=== PATIENT | male | born 1945 | race Caucasian/White ===

== ENCOUNTER → 2018-01-10 | Outpatient (CLI) | payer MEDICARE, BC ==
[~2018-01-10] MED LIST: DIATRIZOATE MEGL/DIATRIZOA SOD 30 ML BTL PO ONE; IOPAMIDOL 370 MG/ML 200 ML INFUS..BTL INJ ONE; SODIUM CHLORIDE 0.9% 50ML 50 ML ONE; Z.0.ATENOLOL100 MG; Z.0.FLOMAX0.4 MG
[2018-01-10 11:56] LABS: BLOOD UREA NITROGEN 15 mg/dL (7-26); BUN/CREATININE RATIO 14 (6-25); CREATININE, SERUM 1.08 mg/dL (0.72-1.25); EST GLOMERULAR FILTRATION RATE > 60 ML/MIN (60-)
--- NOTE | 2018-01-10 13:11 | Diagnostic Imaging Report ---
PROCEDURE: CT ABDOMEN AND PELVIS WITH CONTRAST TECHNIQUE: The abdomen and pelvis were scanned utilizing a multidetector helical scanner from the diaphragm to the lesser trochanter after the IV administration of 100 cc of Isovue 370 and the oral administration of dilute Gastrografin. Coronal and sagittal multiplanar reformations were obtained. COMPARISON: CT, CT ABDOMEN W/ \T\ W/O CON, 01/22/2007, 8:25. Patients [facility], CT, CT ABDOMEN/PELVIS WOW, 05/11/2014, 10:57. Patients [facility], CT, CT ABDOMEN/PELVIS W, 04/30/2014, 10:37. INDICATIONS: LOWER ABDOMEN PAIN FINDINGS: LOWER THORAX: Stable 0.6 cm nodule in the right lower lobe (series 2, image 16) since 2006. Lung bases are otherwise clear. HEPATOBILIARY: No focal hepatic lesions. Reflux of contrast into the IVC and hepatic veins. No biliary ductal dilatation. Gallbladder is unremarkable. SPLEEN: No splenomegaly. PANCREAS: No focal masses or ductal dilatation. ADRENALS: No adrenal nodules. KIDNEYS/URETERS: Stable 5 mm nonobstructing calculus in the inferior pole of the left kidney (series 2 image 43 and sagittal image 109). Stable punctate nonobstructing calculus in the interpolar left kidney (series 2, image 39). Stable 4 mm nonobstructing calculus in the superior pole of the left kidney (series 2, image 30). No right renal calculi. No ureteral calculi, hydronephrosis, or obstruction. Slight interval decrease in size of 7.3 x 7.0 x 7.8 cm fluid density lesion in the posterior interpolar left kidney, which contains linear wall calcifications (series 2, image 39), and previously measured 8.2 x 7.1 x 7.9 cm, when measured along the same axes. Interval increase in size of 4.7 x 4.6 x 3.9 cm lobulated, simple cyst in the anterior superior left kidney (series 2, image 30), which previously measured 2.4 x 3.1 x 2.6 cm. No solid enhancing masses. PELVIC ORGANS/BLADDER: Bladder is unremarkable. Enlarged prostate. Seminal vesicles are unremarkable. PERITONEUM / RETROPERITONEUM: No free air or fluid. LYMPH NODES: No lymphadenopathy. VESSELS: Celiac trunk, superior and inferior mesenteric, and bilateral renal arteries are patent. Bilateral accessory renal arteries are again noted. Portal, superior mesenteric, and splenic veins are patent. Atherosclerotic calcification of the distal abdominal aorta. GI TRACT: No bowel dilation or evidence of obstruction. No pericolonic inflammatory changes. Mild descending and sigmoid colon diverticulosis, without diverticulitis. Appendix is unremarkable. Stomach is unremarkable. BONES AND SOFT TISSUES: No aggressive lytic lesions. Degenerative joint disease in the form of facet hypertrophy at L5-S1. The soft tissues are grossly unremarkable. IMPRESSION: 1. No acute abdominopelvic abnormalities. Specifically, no acute findings to explain the patient's pain. No bowel dilation or evidence of obstruction. 2. Stable left nonobstructing renal calculi. No ureteral calculi, hydronephrosis, or obstruction. 3. Interval increase in size of 4.7 cm simple cyst (Bosniak 1) in the anterior superior left kidney. Interval decrease in size of 7.8 cm Bosniak 2 cyst in the interpolar left kidney. 4. Reflux of contrast into the IVC and hepatic veins may reflect right ventricular dysfunction. Lai Brody M.D. Dictated by: Lai Brody M.D. on 01/10/2018 at 13:12 Electronically approved by: Lai Brody M.D. on 01/10/2018 at 13:12
== END ==
LOC: CT 10:38
PROVIDERS: ATTEND Internal Medicine
DX: R10.84 Generalized abdominal pain (principal); A09 Infectious gastroenteritis and colitis, unspecified
CPT/HCPCS: 36415; 74177; 82565; 84520; Q9967

== ENCOUNTER → 2018-10-01 | Outpatient (CLI) | payer MEDICARE, BC ==
[~2018-10-01] MED LIST changes: -DIATRIZOATE MEGL/DIATRIZOA SOD 30 ML BTL PO ONE; -IOPAMIDOL 370 MG/ML 200 ML INFUS..BTL INJ ONE; -SODIUM CHLORIDE 0.9% 50ML 50 ML ONE
--- NOTE | 2018-10-01 20:52 | Diagnostic Imaging Report ---
EXAM: Complete Abdominal Ultrasound INDICATION: ^ABN WT LOSS/FAM HX MALIG NEOP DIGESTIVE ORGANS COMPARISON: None. TECHNIQUE: Transverse and longitudinal images of the upper abdomen were obtained. FINDINGS: Liver: Size: 16.0 cm in the right midclavicular line, normal Appearance: Normal echogenicity, smooth contour Mass: No focal masses Spleen: Size: 12.3 cm in length, normal Echogenicity: Normal Mass: No focal masses Gallbladder: Stones/Sludge: None Wall: 0.2 cm Appearance: No pericholecystic fluid or hydrops. Sonographic Calle's Sign: Negative Bile Ducts: Intrahepatic Ducts: No dilatation Extrahepatic Ducts: Common bile duct measures 0.4 cm, no dilatation Pancreas: Visualized portions of the pancreatic head, neck and proximal body are normal. Right Kidney: Size: 11.4 x 4.7 x 6.0 cm Echogenicity: Normal Parenchymal thickness: Normal Collecting System: No hydronephrosis Stone: None Cyst/Mass: None Left Kidney: Size: 13.0 x 5.2 x 5.9 cm Echogenicity: Normal Parenchymal thickness: Normal Collecting System: No hydronephrosis Stone: None Cyst/Mass: * 5.4 x 4.2 x 5.0 cm simple anechoic cyst in the medial superior pole. * 7.5 x 7.3 x 6.5 cm simple anechoic cyst in the lateral interpolar region. Vessels: Aorta: Visualized portions are normal Inferior Vena Cava: Visualized portions are normal Main Portal Vein: 0.8 cm, normal size with hepatopetal flow. Free Fluid: No ascites or pleural effusion IMPRESSION: 1. 2 large benign left renal cysts. 2. Otherwise unremarkable abdominal ultrasound. Signed by: Dr. Israel Flannery M.D. on 10/01/2018 8:49 PM
--- NOTE | 2018-10-01 21:00 | Diagnostic Imaging Report ---
EXAM: Transabdominal Pelvic Ultrasound INDICATION: ABN WT LOSS/FAM HX MALIG NEOP DIGESTIVE ORGANS. Left groin pain. COMPARISON: None TECHNIQUE: Grayscale transverse and sagittal transabdominal images were obtained of the pelvis. CLINICAL HISTORY: None FINDINGS: 1.8 x 0.8 x 1.4 cm benign appearing lymph node with a large fatty hilum in the left groin. IMPRESSION: 1.8 cm benign lymph node in the left groin. Signed by: Dr. Israel Flannery M.D. on 10/01/2018 8:56 PM
== END ==
LOC: US 13:44
PROVIDERS: ATTEND Nurse Practitioner Acute Care
DX: R10.30 Lower abdominal pain, unspecified (principal); N50.819 Testicular pain, unspecified; R97.20 Elevated prostate specific antigen [PSA]; R63.4 Abnormal weight loss; Z79.01 Long term (current) use of anticoagulants; Z80.0 Family history of malignant neoplasm of digestive organs
CPT/HCPCS: 76700; 76856

== ENCOUNTER → 2018-11-25 | Outpatient (CLI) | payer MEDICARE, BC ==
--- NOTE | 2018-11-25 15:41 | Diagnostic Imaging Report ---
Exam: Left Knee Series- 3 views. History: Leg pain. Comparison: None. Findings: There are moderate to severe degenerative changes in the medial compartment with joint space narrowing, subchondral sclerosis and bony osteophyte formation. There are moderate degenerative changes in the lateral and patellofemoral compartments. There is quadriceps enthesopathy. No evidence of acute fracture, malalignment, or joint effusion. Impression: No acute osseous abnormality. 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 Signed by: Dr. Nancy Jhaveri MD on 11/25/2018 3:37 PM
== END ==
LOC: DX 12:15
PROVIDERS: ATTEND Internal Medicine
DX: M79.604 Pain in right leg (principal); M17.11 Unilateral primary osteoarthritis, right knee; R22.43 Localized swelling, mass and lump, lower limb, bilateral
CPT/HCPCS: 93925; 93970

== ENCOUNTER 2018-12-25 11:28 | Inpatient (IN) | payer MEDICARE, BC ==
[~2018-12-25] VITALS: Ht 180.3 cm; Wt 101.9 kg
--- OUTSIDE RECORDS SUMMARY | 2018-12-25 11:31 | XMS REPORT ---
Author Author [facility] Address Unknown Phone Unavailable Care Team Providers Care Corporate Development Officer Name Role Phone PACO MACHADO Unavailable Unavailable HAMPEL, CHAY Unavailable Unavailable KARAMIMOGHASAM, MAASOUMAH Unavailable Unavailable Problems This patient has no known problems. Allergies, Adverse Reactions, Alerts This patient has no known allergies or adverse reactions. Medications This patient has no known medications. Results Test Description Test Time Test Comments Text Results Atomic Results Result Comments KNEE LEFT THREE VIEWS 2018-11-25 15:34:00 [place] [address] Patient Name: KELLY PLASENCIA MR #: [id number] : 1945 Age/Sex: 73/M Req #: [id number] Adm Physician: Ordered by: PACO MACHADO MD Report #: [id number] Location: [facility] Room/Bed: Procedure: [id number] DX/KNEE LEFT THREE VIEWS Exam Date: 11/25/18 Exam Time: 1512 REPORT STATUS: Signed Exam: Left Knee Series- 3 views. History: Leg tali n. Comparison: None. Findings: There are moderate to severe degenerative changes in the medial compartment with joint space narrowing, subchondral sclerosis and bony osteophyte formation. There are moderate degenerative changes in the lateral and patellofemoral compartments. There is quadriceps enthesopathy. No evidence of acute fracture, malalignment, or joint effusion. Impression: No acute osseous abnormality. 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 Signed by: Dr. Sarina Fletcher MD on 11/25/2018 3:37 PM Dictated By: SARINA FLETCHER MD 36 Transcribed By: ABBY on 11/25/181536 COPY TO: PACO MACHADO MD CT ABDOMEN/PELVIS WOW 2018-10-17 14:55:00 [place] [address] Patient Name: KELLY PLASENCIA MR #: [id number] : 1945 Age/Sex: 73/M Req #: [id number] Adm Physician: Ordered by: CHAY DUMONT MD Report #: [id number] Location: CT Room/Bed: Procedure: [id number] CT/CT ABDOMEN/PELVIS WOW Exam Date: 10/17/18 Exam Time: 1356 REPORT STATUS: Signed ADDENDUM #1 ADDENDUM: Dose modulation, iterative reconstruction, and/or weight based adjustment of the mA/kV was utilized to reduce the radiation dose to as low as reasonably achievable. Signed by: Dr. Sarina Fletcher MD on 11/04/2018 3:40 PM ORIGINAL REPORT EXAM: CT Abdomen with and without contrast INDICATION: Renal cyst. COMPARISON: CT abdomen pelvis with contrast 01/10/2018, CT abdomen/pelvis with contrast 04/30/2014. TECHNIQUE: Abdomen was scanned utilizing a multidetector helical scanner from the lung base to the iliac crest before and after administration of IV contrast. Coronal and sagittal reformations were obtained. Routine protocol was performed. Scan was performed with renal mass protocol with noncontrast, arterial phase, and delayed images. IV CONTRAST: 100 cc of Isovue 370 ORAL CONTRAST: Water RADIATION DOSE: Total DLP: 2352 mGy*cm COMPLICATIONS: None FINDINGS: LINES and TUBES: None. LOWER THORAX: Unchanged 6 mm right basilar lung nodule compared to CT on 04/30/2014, consistent with benign etiology. HEPATOBILIARY: No focal hepatic lesions. No biliary ductal dilation. The gallbladder is unremarkable. SPLEEN: No splenomegaly. PANCREAS: No focal masses or ductal dilatation. ADRENALS: No adrenal nodules KIDNEYS/URETERS: There is a simple left upper pole lobulated cyst, measuring up to 5 cm, unchanged from CT on 01/10/2018. A minimally complex cyst with peripheral linear calcifications in the left posterior interpolar kidney, measures up to 6.7 x 6.6 cm (oblique TV x AP), unchanged by my measurement from CT on 01/10/2018, and decreased in size from CT on 04/30/2014. No evidence of solid enhancing component or solid mass. Stable 5 mm nonobstructing stone in the left inferior pole kidney. Stable punctate left interpolar stone. Stable 4 mm stone in the superior pole of left kidney. GI TRACT: No abnormal distention, wall thic kening, or evidence of bowel obstruction. LYMPH NODES: No lymphadenopathy. VESSELS: Scattered atherosclerotic changes of the abdominal aorta and branch vessels. There is reflux of contrast into the IVC, suggestive of right heart dysfunction. PERITONEUM / RETROPERITONEUM: No free air or fluid. BONES/SOFT TISSUES: No acute bony findings or evidence of suspicious lytic or blastic lesions. IMPRESSION: Unchanged appearance of minimally complex left mid pole renal cyst compared to CT on 01/10/2018 and slightly decreased in size from CT on 04/30/2014. No evidence of solid enhancing component. Additional simple left upper pole renal cyst. Nonobstructing left-sided renal stones measuring up to 5 mm. Signed by: Dr. Sarina Fletcher MD on 10/17/2018 3:12 PM Dictated By: SARINA FLETCHER MD 1546 Transcribed By: ABBY on 10/17/18 1512 COPY TO: CHAY DUMONT MD US PELVIS COMPLETE NON OB 2018-10-01 20:49:00 [place] [address] Patient Name: KELLY PLASENCIA MR #: [id number] : 1945 Age/Sex: 73/M Req #: [id number] Adm Physician: Ordered by: JAY BRUNSON CANCELING AND CUTTING CONTROL CLERK Report #: [id number] Location: US Room/Bed: Procedure: [id number] US/US PELVIS COMPLETE NON OB Exam Date: 10/01/18 Exam Time: 1426 REPORT STATUS: Signed EXAM: Transabdominal Pelvic Ultrasound INDICATION: ABN WT LOSS/FAM HX MALIG NEOP DIGESTIVE ORGANS. Left groin pain. COMPARISON: None TECHNIQUE: Grayscale transverse and sagittal transabdominal images were obtained of the pelvis. CLINICAL HISTORY: None FINDINGS: 1.8 x 0.8 x 1.4 cm benign appearing lymph node with a large fatty hilum in the left groin. IMPRESSION: 1.8 cm benign lymph node in the left groin. Signed by: Dr. Lilia Sena M.D. on 10/01/2018 8:56 PM Dictated By: LILIA SENA MD 55 Transcribed By: ABBY on 10/01/182055 COPY TO: JAY BRUNSON CANCELING AND CUTTING CONTROL CLERK US ABDOMEN COMPLETE 2018-10-01 20:46:00 [place] [address] Patient Name: KELLY PLASENCIA MR #: [id number] : 1945 Age/Sex: 73/M Req #: [id number] Adm Physician: Ordered by: JAY BRUNSON NP Report #: [id number] Location: Room/Bed: Procedure: [id number] US/US ABDOMEN COMPLETE Exam Date: 10/01/18 Exam Time: 1415 REPORT STATUS: Signed EXAM: Complete Abdominal Ultrasound INDICATION: ABN WT LOSS/FAM HX MALIG NEOP DIGESTIVE ORGANS COMPARISON: None. TECHNIQUE: Transverse and longitudinal images of the upper abdomen were obtained. FINDINGS: Liver: Size: 16.0 cm in the right midclavicular line, normal Appearance: Normal echogenicity, smooth contour Mass: No focal masses Spleen: Size: 12.3 cm in length, normal Echogenicity: Normal Mass: No focal masses Gallbladder: Stones/Sludge: None Wall: 0.2 cm Appearance: No pericholecystic fluid or hydrops. Sonographic Calle's Sign: Negative Bile Ducts: Intrahepatic Ducts: No dilatation Extrahepatic Ducts: Common bile duct measures 0.4 cm, no dilatation Pancreas: Visualized portions of the pancreatic head, neck and proximal body are normal. Right Kidney: Size: 11.4 x 4.7 x 6.0 cm Echogenicity: Normal Parenchymal thickness: Normal Collecting System: No hydronephrosis Stone: None Cyst/Mass: None Left Kidney: Size: 13.0 x 5.2 x 5.9 cm Echogenicity: Normal Parenchymal thickness: Normal Collecting System: No hydronephrosis Stone: None Cyst/Mass: * 5.4 x 4.2 x 5.0 cm simple anechoic cyst in the medial superior pole. * 7.5 x 7.3 x 6.5 cm simple anechoic cyst in the lateral interpolar region. Vessels: Aorta: Visualized portions are normal Inferior Vena Cava: Visualized portions are normal Main Portal Vein: 0.8 cm, normal size with hepatopetal flow. Free Fluid: No ascites or pleural effusion IMPRESSION: 1. 2 large benign left renal cysts. 2. Otherwise unremarkable abdominal ultrasound. Signed by: Dr. Lilia Sena M.D. on 10/01/2018 8:49 PM Dictated By: LILIA SENA MD 48 Transcribed By: ABBY on 10/01/182048 COPY TO: JAY BRUNSON NP CT ABDOMEN/PELVIS W [place] [address] Patient Name: KELLY PLASENCIA MR #: [id number] : 1945 Age/Sex: 72/M Req #: [id number] Adm Physician: Ordered by: PACO MACHADO MD Report #: [id number] Location: CT Room/Bed: Procedure: [id number] CT/CT ABDOMEN/PELVIS W Exam Date: 01/10/18 Exam Time: 1200 REPORT STATUS: Signed PROCEDURE: CT ABDOMEN AND PELVIS WITH CONTRAST TECHNIQUE: The abdomen and pelvis were scanned utilizing a multidetector helical scanner from the diaphragm to the lesser trochanter after the IV administration of 100 cc of Isovue 370 and the oral administration of dilute Gastrografin. Coronal and sagittal multiplanar reformations were obtained. COMPARISON: CT, CT ABDOMEN W/ T W/O CON, 01/22/2007, 8:25. [facility], CT, CT ABDOMEN/PELVIS WOW, 05/11/2014, 10:57. [facility], CT, CT ABDOMEN/PELVIS W, 04/30/2014, 10:37. INDICATIONS: LOWER ABDOMEN PAIN FINDINGS: LOWER THORAX: Stable 0.6 cm nodule in the right lower lobe (series 2, image 16) since 2006. Lung bases are otherwise clear. HEPATOBILIARY: No focal hepatic lesions. Reflux of contrast into the IVC and hepatic veins. No biliary ductal dilatation. Gallbladder is unremarkable. SPLEEN: No splenomegaly. PANCREAS: No focal masses or ductal dilatation. ADRENALS: No adrenal nodules. KIDNEYS/URETERS: Stable 5 mm nonobstructing calculus in the inferior pole of the left kidney (series 2 image 43 and sagittal image 109). Stable punctate nonobstructing calculus in the interpolar left kidney (series 2, image 39). Stable 4 mm nonobstructing calculus in the superior pole of the left kidney (series 2, image 30). No right renal calculi. No ureteral calculi, hydronephrosis, or obstruction. Slight interval decrease in size of 7.3 x 7.0 x 7.8 cm fluid density lesion in the posterior interpolar left kidney, which contains linear wall calcifications (series 2, image 39), and previously measured 8.2 x 7.1 x 7.9 cm, when measured along the same axes. Interval increase in size of 4.7 x 4.6 x 3.9 cm lobulated, simple cyst in the anterior superior left kidney (series 2, image 30), which previously measured 2.4 x 3.1 x 2.6 cm. No solid enhancing masses. PELVIC ORGANS/BLADDER: Bladder is unremarkable. Enlarged prostate. Seminal vesicles are unremarkable. PERITONEUM / RETROPERITONEUM: No free air or fluid. LYMPH NODES: No lymphadenopathy. VESSELS: Celiac trunk, superior and inferior mesenteric, and bilateral renal arteries are patent. Bilateral accessory renal arteries are again noted. Portal, superior mesenteric, and splenic veins are patent. Atherosclerotic calcification of the distal abdominal aorta. GI TRACT: No bowel dilation or evidence of obstruction. No pericolonic inflammatory changes. Mild descending and sigmoid colon diverticulosis, without diverticulitis. Appendix is unremarkable. Stomach is unremarkable. BONES AND SOFT TISSUES: No aggressive lytic lesions. Degenerative joint disease in the form of facet hypertrophy at L5-S1. The soft tissues are grossly unremarkable. IMPRESSION: 1. No acute abdominopelvic abnormalities. Specifically, no acute findings to explain the patient's pain. No bowel dilation or evidence of obstruction. 2. Stable left nonobstructing renal calculi. No ureteral calculi, hydronephrosis, or obstruction. 3. Interval increase in size of 4.7 cm simple cyst (Bosniak 1) in the anterior superior left kidney. Interval decrease in size of 7.8 cm B osniak 2 cyst in the interpolar left kidney. 4. Reflux of contrast into the IVC and hepatic veins may reflect right ventricular dysfunction. Wicho Brody M.D. Dictated by: Wicho Brody M.D. on 01/10/2018 at 13:12 Electronically approved by: Wicho Brody M.D. on 01/10/2018 at 13:12 Dictated By: WICHO BRODY MD 1312 Transcribed By: ANA on 01/10/18 1312 COPY TO: PACO MACHADO MD
[2018-12-25] MEDS ORDERED: SODIUM CHLORIDE 0.9% 500ML 500 ML ONE (11:43)
[2018-12-25] MEDS ORDERED: DILTIAZEM HCL VIAL 5 ML ONE (11:43)
--- NOTE | 2018-12-25 11:43 | NUR ---
CARDIZEM BOLUS 10MG IV GIVEN PER DR CONTRERAS VERBAL ORDER.
[2018-12-25] MEDS ORDERED: DILTIAZEM HCL 5 MG/ML 5 ML VIAL IV STA (11:45)
[2018-12-25] MEDS ORDERED: SODIUM CHLORIDE 0.9% 500ML 500 ML IV ONE (11:45)
[2018-12-25] MEDS ORDERED: FUROSEMIDE INJ 10 MG/ML 4 ML VIAL IV ONE (12:00)
[2018-12-25] MEDS ORDERED: LISINOPRIL10 MG PO (12:03)
[2018-12-25 12:55] LABS: BASOPHILS % 0.3 % (0.0-1.0); EOSINOPHILS % 0.4 % (0.0-6.0); HEMATOCRIT 47.3 % (38.2-49.6); HEMOGLOBIN 14.9 g/dL (14.0-18.0); LYMPHOCYTES # (AUTO) 1.4 (1.0-3.2); LYMPHOCYTES % 14.2 % (18.0-39.1); MEAN CORPUSCULAR HEMOGLOBIN 29.3 pg (28-32); MEAN CORPUSCULAR HGB CONC 31.5 g/dL (31-35); MEAN CORPUSCULAR VOLUME 93.1 fL (81-99); MONOCYTES # (AUTO) 0.7 (0.2-0.8); MONOCYTES % 7.3 % (4.4-11.3); NEUTROPHILS # (AUTO) 7.7 (2.1-6.9); NEUTROPHILS % 77.2 % (38.7-80.0); PLATELET COUNT 287 x10e3/uL (140-360); RED BLOOD COUNT 5.08 x10e6/uL (4.3-5.7); RED CELL DISTRIBUTION WIDTH 13.6 % (11.7-14.4)
--- NOTE | 2018-12-25 13:00 | NUR ---
INSERTED CAREY CATHETHER PER MD ORDERS FOR URINARY RETENTION PT WHEN URINE STARTED TO COME OUT IT WAS BLOODY AND CLEAR AND PT C/O PAIN NURSE STOPPED INSERTION AND WITHDREW CATHETER AND ON THE TIP OF THE CATHETER WAS BLOOD CLOTS; BLOOD CLOT SHOWN TO MD WHO CALLED DR DUMONT FOR INSTRUCTIONS; PER DR CONTRERAS PER DR Shalonda DUMONT GIVE PT SOME TIME RE-INSERT CAREY AND MANUALLY FLUSH; CAREY INSERTION RE-ATTEMPTED APPROX 1400 WITH ASSISTANCE FROM TEODORO JEFFREY CAREY INSERTED AND CLEAR BLOOD CAME OUT PT DID NOT C/O PAIN PT MANUALLY FLUSHED WITH APPROX 420 CC NS WITH APPROX 600 CC URINE/NS COMING BACK OUT; CAREY REMAINS IN PLACE AND PT DENIES ANY DISCOMFORT WITH CAREY AT THIS TIME APPROX 300 CC BLOODY URINE NOTED IN CAREY BAG
[2018-12-25 13:13] LABS: INR 2.76; PROTHROMBIN TIME 29.9 seconds (11.9-14.5)
[2018-12-25 13:14] LABS: PARTIAL THROMBOPLASTIN TIME 38.1 seconds (23.8-35.5)
[2018-12-25 13:18] LABS: ALBUMIN 3.1 g/dL (3.5-5.0); ALBUMIN/GLOBULIN RATIO 0.9 (0.8-2.0); ANION GAP 14.4 mmol/L (8-16); CALCIUM 9.1 mg/dL (8.4-10.2); CREATININE, SERUM 1.55 mg/dL (0.72-1.25); MAGNESIUM 1.9 MG/DL (1.3-2.1); POTASSIUM 4.4 mmol/L (3.5-5.1)
--- NOTE | 2018-12-25 13:31 | Diagnostic Imaging Report ---
EXAM: CHEST SINGLE (PORTABLE) DATE: 12/25/2018 11:46 AM INDICATION: Shortness of breath COMPARISON: None FINDINGS: Lines and tubes: None Heart size normal. No focal pulmonary opacity, pleural effusion or pneumothorax. Upper abdomen unremarkable. No acute bony abnormality. Healed left rib fractures are noted. IMPRESSION: No evidence for acute disease. Signed by: Dr. Evan Fernandez M.D. on 12/25/2018 1:28 PM
[2018-12-25 13:41] LABS: THYROID STIMULATING HORMONE 1.815 uIU/mL (0.350-4.940)
[2018-12-25] MEDS ORDERED: ONDANSETRON HCL INJ 2MG/ML 2ML 2 MG/ML VIAL IV PRN (13:45)
--- NOTE | 2018-12-25 16:00 | NUR ---
DR Rashid RUANO IN ROOM WITH PT
[2018-12-25] MEDS ORDERED: AMIODARONE HCL 900 MG in DEXTROSE 5% 500ML 500 ML IV SCH (16:15)
[2018-12-25] MEDS ORDERED: AMIODARONE HCL 150 MG/100 ML BAG IV ONE (16:15)
[2018-12-25] MEDS ORDERED: AMIODARONE HCL 900 MG in DEXTROSE 5 % 500ML BOTTLE 500 ML IV SCH ×2 (16:30→16:45)
[2018-12-25] MEDS ORDERED: AMIODARONE HCL 150 MG in DEXTROSE 5% 100ML 100 ML IV ONE (16:30)
[2018-12-25] MEDS ORDERED: WARFARIN SOD 5 MG TAB PO SCH (17:00)
--- NOTE | 2018-12-25 18:42 | Consultation ---
DATE OF CONSULTATION: Cardiology Consultation CONSULTING PHYSICIAN: Cal Gauthier M.D., Interventional Cardiology. REASON FOR CONSULTATION: Atrial fibrillation. HISTORY OF PRESENT ILLNESS: Mr. Yoon is a pleasant 73-year-old man with history of morbid obesity, lymphedema, history of right lower extremity DVT for which he has been on chronic vitamin K anticoagulant with therapeutic INR on admission of 2.76, history of hypertension and BPH who presents to [facility] via the Emergency Department with complaints of palpitations and lightheadedness. He underwent an EEG done at his primary doctor's office, which was significant for atrial fibrillation reportedly, the patient was transferred to the ER for further care. Initially, he was provided with diltiazem IV followed by a drip. His rate has remained in the 120s to 140s, AFib on telemetry. He denies any chest discomfort. He feels somewhat better upon arrival. He also received furosemide 60 mg IV x1. He does not recall any prior history of arrhythmias. He does not recall any prior cardiac histories otherwise. Other significant findings included an elevated BNP of 510, a magnesium of 1.9, and a creatinine of 1.55. His EKG shows atrial fibrillation with rapid ventricular response. REVIEW OF SYSTEMS: 12-system review is negative except for as noted above. PAST MEDICAL HISTORY: Significant for lymphedema, morbid obesity, right lower extremity DVT and hypertension. HOME MEDICATIONS: Include atenolol 100 mg daily, lisinopril 10 mg daily, and Flomax 0.4 mg daily. He also reports being on warfarin, however, he does not recall his current dose. He does not recall other medications. ALLERGIES: PLEASE SEE EMR. SOCIAL HISTORY: Occasional alcohol use. Denies any recent smoking or drugs. FAMILY HISTORY: Significant for hypertension. PHYSICAL EXAMINATION: VITAL SIGNS: Temperature 97.6, heart rate 132, respiratory rate 18, blood pressure 120/98, and O2 saturation 100%. GENERAL: No acute distress. Alert. NECK: With JVD to lower 3rd. CHEST: Clear to auscultation. CARDIOVASCULAR: Irregularly irregular rate and rhythm. Normal S1 and S2. No S3 or S4. No murmurs or rubs. ABDOMEN: Soft and nontender. EXTREMITIES: With 3+ edema including toes with pitting edema and some bullous skin changes to the distal lower extremities. STUDIES REVIEWED: BNP 510, magnesium 1.9. TSH 1.81, sodium 139, potassium 4.4, chloride 106, bicarbonate 23, BUN 28, creatinine 1.55, glucose 116. White blood cells 10, hemoglobin 14.9, platelets 287. PT 29.9, PTT 38.1, INR 2.76, total protein 6.4, albumin 3.1, AST 29, ALT 48, alkaline phosphatase 96. ASSESSMENT: 1. Atrial fibrillation with rapid ventricular response, new diagnosis. 2. History of right lower extremity deep venous thrombosis. 3. Hypertension. 4. Morbid obesity. 5. Lower extremity lymphedema, bilateral. 6. Acute heart failure, unspecified. RECOMMENDATIONS: 1. Initiate beta-jenna given his creatinine of 1.5, possibly acute. We will stop atenolol home dose and initiate metoprolol instead for now. 2. Continue anticoagulation with warfarin for now, Continue at 5 mg daily and check daily INRs. Once home dose confirmed, we will adjust accordingly. 3. Obtain echocardiogram. 4. Agree with diuretics. 5. Keep on telemetry. 6. As outpatient, would benefit from further workup of his lower extremity edema and possibly compression pump therapy. 7. Thank you for the opportunity to participate in the care of Dr. Yoon. Please feel free to call with any questions. We will follow closely. MD ALBERT Christianson/WALKERL /[phone]
[2018-12-25 20:30] VITALS: BP 126/100
--- NOTE | 2018-12-25 20:30 | NUR ---
Received patient as an admission from ER, Afib, on Amio drip, on oxygen at 3l/min. Saturating well. shortness of breath on exertion
[2018-12-25 21:00] VITALS: BP 126/100
[2018-12-25] MEDS: METOPROLOL SUCCINATE 50 MG TAB XL PO SCH (21:47)
[2018-12-25 22:21] VITALS: BP 126/100
[2018-12-26] VITALS (8 sets, daily range): BP systolic 105–134; BP diastolic 76–107
[2018-12-26 05:07] LABS: BASOPHILS % 0.2 % (0.0-1.0); EOSINOPHILS # (AUTO) 0.1 (0.0-0.4); EOSINOPHILS % 0.8 % (0.0-6.0); HEMATOCRIT 44.4 % (38.2-49.6); HEMOGLOBIN 14.1 g/dL (14.0-18.0); LYMPHOCYTES # (AUTO) 1.2 (1.0-3.2); LYMPHOCYTES % 14.2 % (18.0-39.1); MEAN CORPUSCULAR HEMOGLOBIN 29.4 pg (28-32); MEAN CORPUSCULAR HGB CONC 31.8 g/dL (31-35); MEAN CORPUSCULAR VOLUME 92.7 fL (81-99); MONOCYTES # (AUTO) 0.7 (0.2-0.8); MONOCYTES % 8.2 % (4.4-11.3); NEUTROPHILS # (AUTO) 6.3 (2.1-6.9); PLATELET COUNT 210 x10e3/uL (140-360); RED BLOOD COUNT 4.79 x10e6/uL (4.3-5.7); RED CELL DISTRIBUTION WIDTH 13.5 % (11.7-14.4)
[2018-12-26] MEDS ORDERED: FUROSEMIDE INJ 10 MG/ML 4 ML VIAL IV ONE (05:15)
[2018-12-26] MEDS ORDERED: TRAZODONE HCL 50 MG TAB PO PRN (05:15)
[2018-12-26 05:18] LABS: INR 3.06; PROTHROMBIN TIME 32.4 seconds (11.9-14.5)
--- NOTE | 2018-12-26 05:22 | NUR ---
During AM bath patient noted to have red rash over upper torso, Dr. Ricardo notified and assessed patient. New orders received
[2018-12-26 05:30] LABS: CALCIUM 8.9 mg/dL (8.4-10.2); CHOL/HDL RATIO 3.4 (3.9-4.7); CREATININE, SERUM 1.31 mg/dL (0.72-1.25); MAGNESIUM 1.9 MG/DL (1.3-2.1)
[2018-12-26] MEDS: DIPHENHYDRAMINE HCL 25 MG CAP PO PRN ×3 (06:00→22:16)
--- NOTE | 2018-12-26 07:09 | NUR ---
handed over stable
--- NOTE | 2018-12-26 07:21 | NUR ---
pt resting in bed, no c/o pain or s/s distress. vs stable. on amio drip. able to make needs known. will continue to monitor.
[2018-12-26] MEDS: LISINOPRIL 10 MG TAB PO SCH (09:55)
[2018-12-26] MEDS: METOPROLOL SUCCINATE 50 MG TAB XL PO SCH ×2 (09:55→20:42)
[2018-12-26] MEDS: TAMSULOSIN HCL 0.4 MG CAP PO SCH (09:55)
--- NOTE | 2018-12-26 09:57 | Diagnostic Imaging Report ---
EXAMINATION: CHEST SINGLE (PORTABLE) INDICATION: SOB. COMPARISON: Chest radiograph 12/25/2018. FINDINGS: TUBES and LINES: None. LUNGS: Interval development of mild patchy bibasilar opacities. No evidence of pulmonary edema. PLEURA: No pleural effusion or pneumothorax. HEART AND MEDIASTINUM: The cardiomediastinal silhouette is unremarkable. BONES AND SOFT TISSUES: No acute osseous abnormality. Healed left upper rib fractures. UPPER ABDOMEN: No free air under the diaphragm. IMPRESSION: Interval development of mild patchy bibasilar opacities, which may reflect atelectasis or early pneumonia in the appropriate clinical setting. Signed by: Dr. Nancy Jhaveri MD on 12/26/2018 9:53 AM
--- NOTE | 2018-12-26 13:42 | NUR ---
attempting to wean pt off o2. sats 89-98% while resting in bed, amb to bathroom and desat below 86%. updated CSM
--- NOTE | 2018-12-26 14:02 | Progress Note ---
DATE: 12/26/2018 Cardiology Progress Note SUBJECTIVE: Omar has improvement in his symptoms. He feels somewhat less fatigued, however, not back to baseline. He continues to be in atrial fibrillation with episodes of rapid ventricular response in spite of uptitration of beta-jenna and amiodarone IV drip. We discussed his echo results, which are significant for impaired LV systolic function with LVEF of 25% to 30%. OBJECTIVE: VITAL SIGNS: Temperature 97.7, heart rate 115, blood pressure 107/84, respiratory rate 18, O2 saturation 100%, BMI 37.6. GENERAL: In no acute distress, alert. NECK: No JVD. CHEST: Clear to auscultation. CARDIOVASCULAR: Irregularly irregular rate and rhythm. Normal S1 and S2. ABDOMEN: Soft. EXTREMITIES: With 2+ edema. CARDIOVASCULAR MEDICATIONS: Reviewed: 1. Lisinopril 10 mg daily. 2. Metoprolol succinate 50 mg every 12 hours. 3. Amiodarone IV drip. 4. Warfarin will be placed on hold. INR today is 3.06. LABORATORY DATA: Sodium 139, potassium 4, chloride 106, bicarbonate 26, BUN 27, creatinine 1.3, glucose 98. White blood cells 8.3, hemoglobin 14.1, platelets 210. PT 32.4, PTT 38.1. AST 29, ALT 48, alkaline phosphatase 96, total bilirubin 0.9. ASSESSMENT: 1. Atrial fibrillation with rapid ventricular response. 2. Acute severe systolic heart failure, new diagnosis. 3. Hypertension. 4. Morbid obesity. 5. Lymphedema. 6. History of right lower extremity deep vein thrombosis. RECOMMENDATIONS: 1. Hold warfarin. 2. Discussed coronary invasive evaluation for new diagnosis of acute heart failure and angina. 3. Continue amiodarone drip until completion, then transition to p.o. amiodarone and continue beta-jenna dose. If continues to have issues with rapid ventricular response throughout the weekend, can consider DC cardioversion. I thank Dr. Ricardo for the opportunity to participate in the care of Mr. Yoon. Please free to call with any questions. Cal Gauthier MD AFV/MODL /[id number]
[2018-12-26] MEDS ORDERED: AMIODARONE HCL 900 MG in DEXTROSE 5 % 500ML BOTTLE 500 ML IV SCH (16:45)
[2018-12-26] MEDS: METHYLPREDNISOLONE SOD SUCC 125 MG/2ML VIAL IV SCH (17:00)
--- NOTE | 2018-12-26 17:11 | NUR ---
WOUND CARE NURSE CONSULTATOIN. Addendum: 12/26/18 at 1720 by Bisi Bush RN Amended: Links added.
--- NOTE | 2018-12-26 17:12 | NUR ---
WOUND CARE NURSE INITIAL CONSULTATION. 73 YEAR OLD MALE ADMITTED TO [facility] WITH DX OF ATRIAL FIBRILLATION WITH RVR, AND EDEMA. HX OF MORBID OBESITY, LYMPHEDEMA, RIGHT LOWER EXTREMITY DVT, CURRENTLY ON CHRONIC VITAMIN K ANTICOAGULANT, HTN, BPH AND CHF. HEAD TO TOE SKIN ASSESSMENT PERFORMED TODAY. PT PRESENTS WITH YEAST TO ABDOMINAL FOLDS AND 4+ EDEMA TO BILATERAL LOWER EXTREMITIES. NO OPEN AREAS NOTED AT THIS TIME. NO S/S OF INFECTION NOTED AT THIS TIME. LABS: WBC:8.31 ALB:3.1 HGBA1C: 5.5 GLUCOSE: 95 RECOMMENDATIONS: NURSING TO MONITOR EDEMA DAILY. PROVIDE PT WITH BILATERAL HEEL PROTECTORS AND PILLOW SUSPENSION WHILE IN BED. ENCOURAGE PT TO TURN EVERY 2 HOURS AND PRN. WASH ABDOMINAL FOLDS WITH SOAP AND WATER, PAT DY AND APPLY NYSTATIN POWDER BID. THANKS FOR THIS CONSULTATION. Addendum: 12/26/18 at 1720 by Bisi Bush RN Amended: Links added.
[2018-12-26] MEDS: FUROSEMIDE INJ 10 MG/ML 4 ML VIAL IV SCH (18:13)
--- NOTE | 2018-12-26 20:10 | NUR ---
Patient's HR 130's-150's, afib. Dr. Parekh notified of patient's heart rate and cardiac medications. Dr. Parekh stated that treatment is "limited due to blood pressure". Order for digoxin x 1 given, and to continue amio gtt and PO medications. Dr. Parekh stated that no further calls regarding heart rate needed unless the patient becomes symptomatic. He also stated that if patient continues to have high heart rate, cardioversion may be necessary next week.
[2018-12-26] MEDS ORDERED: DIGOXIN INJ 0.25 MG/ML 2 ML AMP IV ONE (20:15)
[2018-12-26] MEDS ORDERED: METHYLPREDNISOLONE SOD SUCC 125 MG/2ML VIAL IV SCH (21:00)
[2018-12-27] VITALS (8 sets, daily range): BP systolic 99–133; BP diastolic 50–99
[2018-12-27] MEDS: METHYLPREDNISOLONE SOD SUCC 125 MG/2ML VIAL IV SCH ×2 (06:21→17:05)
[2018-12-27] MEDS: FUROSEMIDE INJ 10 MG/ML 4 ML VIAL IV SCH ×2 (08:42→17:05)
[2018-12-27] MEDS: METOPROLOL SUCCINATE 50 MG TAB XL PO SCH (08:42)
[2018-12-27] MEDS: LISINOPRIL 10 MG TAB PO SCH (08:42)
[2018-12-27] MEDS: NYSTATIN 15 GM POWDER UD BTL TOP SCH ×2 (08:42→17:05)
[2018-12-27] MEDS: TAMSULOSIN HCL 0.4 MG CAP PO SCH (08:42)
[2018-12-27 09:20] LABS: INR 2.23; PROTHROMBIN TIME 25.4 seconds (11.9-14.5)
--- NOTE | 2018-12-27 17:48 | Progress Note ---
DATE: 12/27/2018 Cardiology Progress Note SUBJECTIVE: No new complaints today. OBJECTIVE: VITAL SIGNS: Temperature 98.4, heart rate 110, blood pressure 107/89, respiratory rate 19, O2 saturation 98%, BMI 28.4. GENERAL: No acute distress, alert. NECK: No JVD. CHEST: Clear to auscultation. CARDIOVASCULAR: Irregularly irregular rate and rhythm. Normal S1 and S2. No S3 or S4. ABDOMEN: Soft, nontender. EXTREMITIES: 2+ edema. CARDIOVASCULAR MEDICATIONS: Reviewed. Furosemide 40 mg b.i.d., lisinopril 10 mg daily, methylprednisolone 60 mg at bedtime, tamsulosin 0.4 mg daily, amiodarone drip, and metoprolol succinate 50 mg every 12 hours. LABORATORY DATA: Studies reviewed. Potassium 4, bicarbonate 26, creatinine 1.3, and glucose 98. White blood cells 8.3, hemoglobin 14.1, and platelets 210. INR 2.23. AST 29, ALT 48, alkaline phosphatase 96, and total bilirubin 0.9. ASSESSMENT: 1. Atrial fibrillation with rapid ventricular response. 2. Acute systolic heart failure. 3. Hypertension. 4. Dyslipidemia. 5. Lymphedema. RECOMMENDATIONS: 1. Decrease ELAINA inhibitor and up-titrate beta-jenna therapy. 2. Continue amiodarone, transition to p.o. 3. Anticoagulation on hold for cardiac catheterization, likely Saturday as cath schedule availability allows. I have requested a.m. start time, awaiting confirmation from lab. 4. Continue rest of cardiovascular medications. MD ALBERT Christianson/KIM /[id number]
[2018-12-27] MEDS ORDERED: METOPROLOL SUCCINATE 50 MG TAB XL PO SCH (22:00)
[2018-12-27] MEDS: AMIODARONE HCL 200 MG TAB PO SCH (22:35)
[2018-12-27] MEDS ORDERED: LORAZEPAM 0.5 MG TAB PO PRN (23:30)
[2018-12-27] MEDS ORDERED: DIPHENHYDRAMINE HCL 25 MG CAP PO ONE (23:30)
[2018-12-28] VITALS (8 sets, daily range): BP systolic 105–150; BP diastolic 71–92
[2018-12-28] MEDS: METHYLPREDNISOLONE SOD SUCC 125 MG/2ML VIAL IV SCH (05:40)
[2018-12-28 07:08] LABS: BASOPHILS % 0.2 % (0.0-1.0); HEMATOCRIT 48.1 % (38.2-49.6); HEMOGLOBIN 15.5 g/dL (14.0-18.0); LYMPHOCYTES # (AUTO) 0.8 (1.0-3.2); LYMPHOCYTES % 4.8 % (18.0-39.1); MEAN CORPUSCULAR HEMOGLOBIN 29.5 pg (28-32); MEAN CORPUSCULAR HGB CONC 32.2 g/dL (31-35); MEAN CORPUSCULAR VOLUME 91.6 fL (81-99); MONOCYTES # (AUTO) 0.6 (0.2-0.8); MONOCYTES % 3.6 % (4.4-11.3); NEUTROPHILS # (AUTO) 14.5 (2.1-6.9); NEUTROPHILS % 90.8 % (38.7-80.0); PLATELET COUNT 270 x10e3/uL (140-360); RED BLOOD COUNT 5.25 x10e6/uL (4.3-5.7)
[2018-12-28 07:22] LABS: ALBUMIN 2.7 g/dL (3.5-5.0); ALBUMIN/GLOBULIN RATIO 0.8 (0.8-2.0); ANION GAP 13.3 mmol/L (8-16); CALCIUM 8.8 mg/dL (8.4-10.2); CREATININE, SERUM 1.38 mg/dL (0.72-1.25); POTASSIUM 4.3 mmol/L (3.5-5.1)
[2018-12-28] MEDS ORDERED: LISINOPRIL 10 MG TAB PO SCH (09:00)
[2018-12-28 09:15] LABS: INR 1.92; PROTHROMBIN TIME 22.6 seconds (11.9-14.5)
[2018-12-28] MEDS: NYSTATIN 15 GM POWDER UD BTL TOP SCH ×2 (09:21→17:23)
[2018-12-28] MEDS: FUROSEMIDE INJ 10 MG/ML 4 ML VIAL IV SCH (09:21)
[2018-12-28] MEDS: AMIODARONE HCL 200 MG TAB PO SCH ×2 (09:21→22:24)
[2018-12-28] MEDS: LISINOPRIL 2.5 MG TAB PO SCH (09:21)
[2018-12-28] MEDS: TAMSULOSIN HCL 0.4 MG CAP PO SCH (09:21)
--- NOTE | 2018-12-28 12:26 | Progress Note ---
DATE: 12/28/2018 Cardiology Progress Note SUBJECTIVE: No complaints today. OBJECTIVE: VITAL SIGNS: Temperature 97.4, heart rate 111, blood pressure 117/88, respiratory rate 20, saturating 100%. GENERAL: In no acute distress, alert. NECK: No JVD. CHEST: Clear to auscultation. CARDIOVASCULAR: Irregularly irregular rate and rhythm. Normal S1 and S2. Remains tachycardic. ABDOMEN: Soft, nontender. EXTREMITIES: Trace edema of bilateral lower extremities. CARDIOVASCULAR MEDICATIONS: Reviewed. Amiodarone transitioned to 400 mg every 12 hours, metoprolol succinate increased to 100 mg every 12 hours, methylprednisolone daily, lisinopril 2.5 mg daily. LABORATORY DATA: Studies reviewed. Sodium 139, potassium 4.3, chloride 98, bicarbonate 32, BUN 33, creatinine is 1.38, glucose 130. White blood cells 13.9, hemoglobin 15.5, platelets 270. INR 1.9. AST 23, ALT 51, alkaline phosphatase 87. ASSESSMENT: 1. Atrial fibrillation with rapid ventricular response. 2. Acute severe systolic heart failure. 3. Lymphedema. 4. Hypertension. 5. Dyslipidemia. 6. Chronic kidney disease. RECOMMENDATIONS: 1. Transition furosemide to 40 mg daily. 2. Transition metoprolol to 100 mg every 12 hours. 3. Coronary angiography and possible endovascular intervention. Spiral schedule allows. MD ALBERT Christianson/KIM /[id number]
[2018-12-28] MEDS: METOPROLOL SUCCINATE 50 MG TAB XL PO SCH (17:25)
--- NOTE | 2018-12-28 19:10 | NUR ---
Report received from AM nurse. Patient resting on his bed. Denied pain and no SOB. Respiration even and unlabored, continued on 3liters oxygen via nasal canula. Spo2 maintained 99%. Bed in lower position,locked. Call taylor within reach. Will continue to monitor.
[2018-12-28] MEDS: TEMAZEPAM 15 MG CAP PO PRN (22:24)
[2018-12-29] VITALS (16 sets, daily range): BP systolic 98–122; BP diastolic 65–85
[2018-12-29 05:00] LABS: BASOPHILS % 0.1 % (0.0-1.0); HEMATOCRIT 43.9 % (38.2-49.6); HEMOGLOBIN 14.1 g/dL (14.0-18.0); LYMPHOCYTES # (AUTO) 0.7 (1.0-3.2); LYMPHOCYTES % 4.7 % (18.0-39.1); MEAN CORPUSCULAR HEMOGLOBIN 29.4 pg (28-32); MEAN CORPUSCULAR HGB CONC 32.1 g/dL (31-35); MEAN CORPUSCULAR VOLUME 91.6 fL (81-99); MONOCYTES # (AUTO) 0.9 (0.2-0.8); MONOCYTES % 6.2 % (4.4-11.3); NEUTROPHILS # (AUTO) 12.5 (2.1-6.9); NEUTROPHILS % 88.5 % (38.7-80.0); PLATELET COUNT 237 x10e3/uL (140-360); RED BLOOD COUNT 4.79 x10e6/uL (4.3-5.7)
[2018-12-29 05:10] LABS: INR 1.6; PROTHROMBIN TIME 19.7 seconds (11.9-14.5)
[2018-12-29 05:21] LABS: ALBUMIN 2.4 g/dL (3.5-5.0); ALBUMIN/GLOBULIN RATIO 0.9 (0.8-2.0); ANION GAP 9.8 mmol/L (8-16); CALCIUM 8.2 mg/dL (8.4-10.2); CREATININE, SERUM 1.21 mg/dL (0.72-1.25); POTASSIUM 3.8 mmol/L (3.5-5.1)
[2018-12-29] MEDS: METOPROLOL SUCCINATE 50 MG TAB XL PO SCH ×2 (05:57→18:03)
[2018-12-29] MEDS: NYSTATIN 15 GM POWDER UD BTL TOP SCH ×3 (09:00→17:13)
[2018-12-29] MEDS ORDERED: MIDAZOLAM HCL 2 MG/2 ML VIAL ONE (09:27)
[2018-12-29] MEDS ORDERED: FENTANYL CITRATE/PF 100MCG/2 ML INJ ONE (09:27)
[2018-12-29] MEDS ORDERED: HEPARIN SOD/SOD CHLORIDE 2,000 ML ONE (09:27)
[2018-12-29] MEDS ORDERED: LIDOCAINE HCL 2% LOCAL 20 ML VIAL ONE (09:27)
[2018-12-29] MEDS ORDERED: SODIUM CHLORIDE 0.9% 1000ML 1,000 ML ONE (09:28)
[2018-12-29] MEDS ORDERED: IOPAMIDOL 370 MG/ML 200 ML INFUS..BTL INJ ONE (09:28)
[2018-12-29] MEDS ORDERED: VERAPAMIL HCL 2.5 MG/ML 2 ML VIAL ONE (09:28)
--- NOTE | 2018-12-29 09:43 | NUR ---
EDUCATED ABOUT IMM, SIGNED, FILED IN CHART, WITH COPY LEFT WITH FAMILY AT BEDSIDE.
--- NOTE | 2018-12-29 10:42 | NUR ---
1042 Received pt in RM #9 Identiferx2 Received report from Sonny VALERIO Ox4 Back to baseline orientation.PERRLA,Resp shallow and regular on RA 97% LHC. DR Parekh no fix, Saline lock to rt arm #18 TR and approach reported 12cc to balloon ok to titrate at 1115am TR band placed at 10:17. t TR band device intact w/o s/s infiltration and wrist splint in place offered po intake Has Castillo to BSD draining clear gladys urine. Abdomen soft denies necessity to defecate. Bilateral PPx4 intact with Doppler 3+pitting edema. Foam mattress bed with pt comfortable VS stable with monitor atrial fibrillation. call light at bedside,bed in low position and bed brakes on.ds/bella
--- NOTE | 2018-12-29 11:15 | NUR ---
1115 TR band remain stable site no gross signs of pain.pallor,pressure or dysrhythmia. 12cc balloon removed 2cc balance 10cc radial pulse remain adequate.
--- NOTE | 2018-12-29 11:30 | NUR ---
1130 2nd tr band titration (-2cc Ballance/ 8cc). No gross signs pain,pallor, pressure or dysrhythmia. Rt radial pulse adequate. 1145 3rd tr band titration (-2cc Ballance/ 6cc). No gross signs pain ,pallor,pressure or dysrhythmia. rt Radial pulse adequate.
--- NOTE | 2018-12-29 11:56 | Progress Note ---
DATE: 12/29/2018 Cardiology Progress Note SUBJECTIVE: No new complaints. Scheduled for coronary angiography and possible intervention today. OBJECTIVE: VITAL SIGNS: Temperature 98.2, heart rate 101, respiratory rate 20, blood pressure 118/82, O2 saturation 97% on 3 L/minute nasal cannula. GENERAL: In no acute distress, alert. NECK: No JVD. CHEST: Clear to auscultation. CARDIOVASCULAR: Irregularly irregular rate and rhythm. Normal S1, S2. ABDOMEN: Soft, nontender. EXTREMITIES: Trace edema, bilateral lower extremities with lymphedema component. CARDIOVASCULAR MEDICATIONS: Reviewed. Amiodarone 400 mg every 12 hours, lisinopril 2.5 mg daily, Flomax 0.4 mg daily, metoprolol succinate 100 mg every 12 hours, furosemide 40 mg IV daily. LABORATORY DATA: Studies reviewed. White blood cells 14.08, hemoglobin 14.1, platelets 237. INR 1.6, PT 19.7. Sodium 137, potassium 3.8, chloride 97, bicarbonate 34, BUN 37, creatinine 1.2, glucose 113. Hemoglobin A1c was 5.5, AST 19, ALT 43, total protein 5.2, albumin 2.4. TSH 1. ASSESSMENT: 1. Atrial fibrillation. 2. Ojooq-je-uhyhvyc severe systolic heart failure. 3. Lymphedema. 4. Hypertension. 5. Dyslipidemia. 6. Chronic kidney disease. RECOMMENDATIONS: 1. Continue current cardiovascular medications. Plan for resuming anticoagulation over the next several days following angiography. 2. Indications, alternatives, risks, and benefits for coronary angiography and possible intervention discussed with patient, who agrees to proceed. MD ALBERT Christianson/MODL /[id number]
--- NOTE | 2018-12-29 12:00 | NUR ---
1200 TR band titration completed No gross signs of pallor,pain,pressure or dysthymia. Rt iv intact w/o s/s infiltration. Red socks on and heels off sheets. Transported back to floor care Face to face report to TEODORO Maynard. LH performed by DR Penny restrepo .Coban dressing in place with Tegaderm and 2x2 . Positive radial pulse denies c/o CP or SOB Left bedside call light at bedside ,bed locks on and side rails up. lalito/teodoro
--- NOTE | 2018-12-29 12:30 | NUR ---
Received patient from cathode maker patient in bed alert and oriented x3, s/p left heart cath has Coban band dressing to, right wrist. no s/s of distress noted. Placed back on telemetry, monitor, a-fib heart rate controlled. Belongings and call light within reach will continue to monitor.
--- NOTE | 2018-12-29 14:52 | Operative Report ---
DATE OF PROCEDURE: 12/29/2018 SURGEON: Cal Gauthier MD CARDIAC CATHETERIZATION PROCEDURE INDICATION: Acute severe systolic heart failure and angina pectoris. PROCEDURE PERFORMED: 1. Left heart catheterization. 2. Selective coronary angiography. 3. Right radial TR band hemostasis. COMPLICATIONS: None. ESTIMATED BLOOD LOSS: Less than 15 mL. PROCEDURE SUMMARY: After consent was obtained, the patient was prepped and draped in a sterile fashion. The right radial site was locally infiltrated with 2% lidocaine. Access was obtained and a 5-Taiwanese slender sheath advanced in the right radial site. A radial cocktail with nitroglycerin, heparin and verapamil were administered via the sheath. TIG catheter was used as a universal catheter for engagement of the left main, right coronary artery as well as across the aortic valve with hemodynamic measurements. The following findings were noted. At the end of the procedure, a TR band was applied achieving six vessel hemostasis. PROCEDURE FINDINGS: 1. LV pressure was 100/10 with end-diastolic pressure of 18. 2. The aortic pressure was 92-96/63. 3. No left ventriculogram was performed. 4. Left main is large in caliber with luminal irregularities giving an LAD and circumflex. 5. The LAD has luminal irregularities giving a diagonal and septal perforators. 6. Two ramus intermedius are noted both small in caliber with luminal irregularities. 7. Circumflex has luminal irregularities gives two obtuse marginals small to medium caliber. 8. The right coronary artery has a mid segment 30% focal stenosis and gives a terminal RPDA and RPLV. CONCLUSION: 1. Mild coronary artery disease. 2. Nonischemic cardiomyopathy. 3. Acute severe systolic heart failure with LVEDP 18. RECOMMENDATIONS: Medical aggressive therapy for heart failure and management of atrial fibrillation, wean TR band. Cal Gauthier MD AFV/MODL /[id number] MTDD
[2018-12-29] MEDS: FUROSEMIDE INJ 10 MG/ML 4 ML VIAL IV SCH (14:53)
[2018-12-29] MEDS: SODIUM CHLORIDE FLUSH 10 ML SYR INJ PRN (14:53)
[2018-12-29] MEDS: AMIODARONE HCL 200 MG TAB PO SCH ×2 (14:53→21:52)
[2018-12-29] MEDS: TAMSULOSIN HCL 0.4 MG CAP PO SCH (14:54)
[2018-12-29] MEDS: LISINOPRIL 2.5 MG TAB PO SCH (15:14)
[2018-12-29] MEDS ORDERED: LORAZEPAM 1 MG TAB PO PRN (16:30)
[2018-12-29] MEDS: TEMAZEPAM 15 MG CAP PO PRN (21:52)
[2018-12-30] VITALS (8 sets, daily range): BP systolic 103–130; BP diastolic 5–89
[2018-12-30 05:52] LABS: INR 1.22
[2018-12-30] MEDS: BISACODYL 5 MG TAB EC PO SCH (06:16)
[2018-12-30] MEDS: METOPROLOL SUCCINATE 50 MG TAB XL PO SCH ×2 (06:17→17:32)
[2018-12-30] MEDS: NYSTATIN 15 GM POWDER UD BTL TOP SCH ×2 (10:25→17:13)
[2018-12-30] MEDS: TAMSULOSIN HCL 0.4 MG CAP PO SCH (10:28)
[2018-12-30] MEDS: FUROSEMIDE INJ 10 MG/ML 4 ML VIAL IV SCH (10:28)
[2018-12-30] MEDS: AMIODARONE HCL 200 MG TAB PO SCH ×2 (10:28→20:16)
[2018-12-30] MEDS: SODIUM CHLORIDE FLUSH 10 ML SYR INJ PRN (10:29)
[2018-12-30] MEDS: LISINOPRIL 2.5 MG TAB PO SCH (10:30)
[2018-12-30] MEDS: APIXABAN 5 MG TABLET PO SCH ×2 (10:43→20:16)
--- NOTE | 2018-12-30 22:52 | NUR ---
Patient received as transfer from [facility] bed 187. Patient alert and oriented x4. No distress or discomfort observed. Bilateral lower extremities with 3+ pitting edema. Castillo catheter in place draining dark gladys urine. Allevyn dressing applied to sacral area (with stage 1 - redness). Patient states quite weak to ambulate at this time. Call taylor within reach. Will monitor closely.
[2018-12-30] MEDS: TEMAZEPAM 15 MG CAP PO PRN (23:00)
[2018-12-31] VITALS (8 sets, daily range): BP systolic 104–127; BP diastolic 67–95
[2018-12-31 05:21] LABS: BASOPHILS % 0.3 % (0.0-1.0); EOSINOPHILS # (AUTO) 0.1 (0.0-0.4); EOSINOPHILS % 1.5 % (0.0-6.0); HEMATOCRIT 44.6 % (38.2-49.6); HEMOGLOBIN 14.4 g/dL (14.0-18.0); LYMPHOCYTES # (AUTO) 1.2 (1.0-3.2); LYMPHOCYTES % 15.2 % (18.0-39.1); MEAN CORPUSCULAR HEMOGLOBIN 29.7 pg (28-32); MEAN CORPUSCULAR HGB CONC 32.3 g/dL (31-35); MONOCYTES # (AUTO) 0.7 (0.2-0.8); MONOCYTES % 9.3 % (4.4-11.3); NEUTROPHILS # (AUTO) 5.8 (2.1-6.9); NEUTROPHILS % 72.6 % (38.7-80.0); PLATELET COUNT 218 x10e3/uL (140-360); RED BLOOD COUNT 4.85 x10e6/uL (4.3-5.7); RED CELL DISTRIBUTION WIDTH 13.1 % (11.7-14.4)
[2018-12-31] MEDS: BISACODYL 5 MG TAB EC PO SCH (05:37)
[2018-12-31] MEDS: METOPROLOL SUCCINATE 50 MG TAB XL PO SCH ×2 (05:37→17:11)
[2018-12-31 05:39] LABS: INR 1.29; PROTHROMBIN TIME 16.7 seconds (11.9-14.5)
[2018-12-31 05:47] LABS: ALBUMIN 2.5 g/dL (3.5-5.0); ALBUMIN/GLOBULIN RATIO 0.8 (0.8-2.0); ANION GAP 9.9 mmol/L (8-16); CALCIUM 8.4 mg/dL (8.4-10.2); CREATININE, SERUM 1.26 mg/dL (0.72-1.25); POTASSIUM 3.9 mmol/L (3.5-5.1)
[2018-12-31] MEDS: TAMSULOSIN HCL 0.4 MG CAP PO SCH (09:29)
[2018-12-31] MEDS: NYSTATIN 15 GM POWDER UD BTL TOP SCH ×2 (09:29→17:10)
[2018-12-31] MEDS: AMIODARONE HCL 200 MG TAB PO SCH ×2 (09:29→21:56)
[2018-12-31] MEDS: LISINOPRIL 2.5 MG TAB PO SCH (09:29)
[2018-12-31] MEDS: APIXABAN 5 MG TABLET PO SCH ×2 (09:29→21:56)
[2018-12-31] MEDS: FUROSEMIDE INJ 10 MG/ML 4 ML VIAL IV SCH (09:29)
--- NOTE | 2018-12-31 09:32 | NUR ---
IMM letter delivered and explained to pt. He verbalized understanding. Signed copy placed in chart. Copy placed in pt's transition of care folder.
--- NOTE | 2018-12-31 13:15 | NUR ---
CM SPOKE TO PATIENT REGARDING ACUTE INPATIENT REHAB ORDER. CM EXPLAINED ACUTE PATIENT REHAB SERVICES AND CHOICES. PATIENT DISCUSSES REHAB PLACEMENT WITH HIS BROTHER AND BEDSIDE RN ADAN BEFORE AGREEING TO PLACEMENT. PATIENT CHOSE [facility] THEIR FIRST CHOICE. CHOICE LETTER SIGNED AND PLACED IN CHART. MOT INITIATED AND PLACED ON CHART. PENDING INSURANCE AUTH. PATIENT TO BE TRANSFERRED TO ACUTE INPATIENT REHAB: [facility] Address: [address] [place] [address], [place] [address]
--- NOTE | 2018-12-31 14:19 | Progress Note ---
DATE: Cardiology Progress Note SUBJECTIVE: No complaints. OBJECTIVE: VITAL SIGNS: Temperature 97.5, heart rate 79, respiratory rate 18, blood pressure 118/80, and O2 saturation 98%. GENERAL: In no acute distress, alert. NECK: No JVD. CHEST: Clear to auscultation. CARDIOVASCULAR: Regular rate and rhythm. Normal S1, S2. Systolic ejection murmur 1/6. ABDOMEN: Soft and nontender. EXTREMITIES: Trace edema, overall improved, on diuretics. Chronic lymphedema changes. Deconditioned, undergoing rehab. MEDICATIONS: Cardiovascular medications reviewed. Lisinopril 2.5 mg daily, tamsulosin 0.4 mg daily, furosemide 40 mg daily, metoprolol succinate 100 mg every 12 hours, Eliquis 5 mg every 12 hours, and amiodarone 400 mg every 12 hours. LABORATORY DATA: Sodium 138, potassium is 3.9, chloride 97, bicarbonate 35, BUN 32, creatinine 1.2, and glucose 100. White blood cells 7.9, hemoglobin 14.4, and platelets 289. INR 1.29. AST 37, ALT 72, and alk phos 85. ASSESSMENT: 1. Paroxysmal atrial fibrillation. 2. Chronic lymphedema. 3. Xjuxj-ne-suedayi severe systolic heart failure. 4. Hypertension. 5. Nonischemic cardiomyopathy. RECOMMENDATIONS: 1. Continue current cardiovascular medications. 2. Rehab assessment ongoing. 3. Okay to discharge from a cardiovascular standpoint from an inpatient status, was okay with other treating physicians. MD ALBERT Christianson/KIM /[id number]
--- NOTE | 2018-12-31 16:25 | NUR ---
Nutrition Screen Note RD Recommendation for Physician: -Continue cardiac diet as ordered Plan of Care: RD following, monitoring for tolerance and adequacy Nutrition reason for involvement: LOS Primary Diagnose(s): 1. Paroxysmal atrial fibrillation. 2. Chronic lymphedema. 3. Fmwsj-aw-dwxsias severe systolic heart failure. PMH: lymphedema, morbid obesity, right lower extremity DVT and hypertension Ht: 71in Wt: 204.44lb BMI: 28.5kg/m2 IBW: 172lb RD Assessment: (12/31) Chart reviewed. Labs and meds reviewed. 73yo M, who was admitted for palpitations and lightheadedness. Visited pt in the room. Pt reported good appetite with 100% recorded meal intake. No GI complains noted. LBM 12/31. Pt denied any chewing or swallowing difficulty. Unknown weight loss hx. Will continue to monitor and follow. Current Diet: Cardiac diet Malnutrition Evaluation (12/31) The patient does not meet criteria for a specified degree of malnutrition at this time. Will re-evaluate at follow-up as appropriate. Diet Education Needs Assessment: Diet education not indicated. Nutrition Care Level: low Signed: Eliana Dominguez, MS, RD, LD
[2018-12-31] MEDS: TEMAZEPAM 15 MG CAP PO PRN (22:00)
[2019-01-01] VITALS: BP 128/82
[2019-01-01 04:50] VITALS: BP 122/75
[2019-01-01] MEDS: BISACODYL 5 MG TAB EC PO SCH (05:19)
[2019-01-01] MEDS: METOPROLOL SUCCINATE 50 MG TAB XL PO SCH ×2 (05:21→17:02)
[2019-01-01 05:29] LABS: INR 1.23; PROTHROMBIN TIME 16.1 seconds (11.9-14.5)
[2019-01-01] MEDS ORDERED: ONDANSETRON HCL 4 MG ORAL DISINTEGRATING TAB PO PRN (06:15)
--- NOTE | 2019-01-01 06:56 | NUR ---
REPORT GIVEN TO ONCOMING NURSE.WALKING ROUNDS MADE.PT RESTING IN BED WITH NO S/S OF DISTRESS.
--- NOTE | 2019-01-01 06:58 | NUR ---
REPORT GIVEN TO ONCOMING NURSE.WALKING ROUNDS MADE.PT RESTING IN BED WITH NO S/S OF DISTRESS.
[2019-01-01 07:36] VITALS: BP 106/80
[2019-01-01 07:57] VITALS: BP 106/80
[2019-01-01] MEDS ORDERED: LISINOPRIL 2.5 MG TAB PO SCH (09:00)
[2019-01-01] MEDS: FUROSEMIDE INJ 10 MG/ML 4 ML VIAL IV SCH (09:56)
[2019-01-01] MEDS: APIXABAN 5 MG TABLET PO SCH (09:56)
[2019-01-01] MEDS: AMIODARONE HCL 200 MG TAB PO SCH (09:56)
[2019-01-01] MEDS: TAMSULOSIN HCL 0.4 MG CAP PO SCH (09:56)
[2019-01-01] MEDS: NYSTATIN 15 GM POWDER UD BTL TOP SCH ×2 (09:57→16:54)
[2019-01-01 11:11] VITALS: BP 139/91
--- NOTE | 2019-01-01 13:41 | Progress Note ---
DATE: 01/01/2019 Cardiology Progress Note SUBJECTIVE: No complaints today. Possible transfer to SNF later this evening. OBJECTIVE: VITAL SIGNS: Temperature 97.7, heart rate 91, respiratory rate 20, blood pressure 139/91, and O2 saturation 97% on room air. GENERAL: In no acute distress, alert. NECK: No JVD. CHEST: Clear to auscultation. CARDIOVASCULAR: Irregular rate and rhythm. Normal S1 and S2. No S3. No S4. ABDOMEN: Soft, nontender. EXTREMITIES: With 1+ edema in bilateral lower extremities and chronic lymphedema changes. STUDIES: Reviewed. White blood cells 7.9, hemoglobin 14.4, platelets 218. INR 1.2, PT 16.1. Sodium 138, potassium 3.9, chloride 97, bicarbonate 35, BUN 32, creatinine 1.26, glucose 100. Total bilirubin 1.9, AST 37, ALT 72, alkaline phosphatase 85, total protein 5.5, albumin 2.5. On telemetry, in atrial fibrillation with controlled ventricular response. ASSESSMENT: 1. Atrial fibrillation, paroxysmal. 2. Acute on chronic severe systolic heart failure. 3. Nonischemic cardiomyopathy. 4. Hypertension. 5. Lymphedema. 6. Borderline abnormal LFTs. RECOMMENDATIONS: 1. Continue current cardiovascular medications. 2. Decrease amiodarone to 400 mg once daily for now and on followup in the office, we will consider further decrease in dosing. 3. Continue to monitor intermittent LFTs. 4. Possible transfer to SNF. 5. Transition diuretics to oral 40 mg b.i.d. p.o. with intermittent lytes checked as outpatient. 6. Eliquis for thromboembolic risk prevention. MD ALBERT Christianson/KIM /[id number]
--- NOTE | 2019-01-01 14:28 | NUR ---
CM RECEIVED MOT FROM [facility]. PATIENT APPROVED AND ACCEPTED WITH MOT: [facility] Address: [address] [place] [address], [place] [address] ROOM NUMBER RECEIVED DURING REPORT CALL REPORT TO: [phone] ACCEPTING PHYSICIAN: DR. CINDI LARIOS ADMIN ON SITE: [facility]ET[facility] NOVOA. MOT SIGNED BY PATIENT AND WITNESS BY MYSELF AND BEDSIDE TEODORO ARELLANO
[2019-01-01 16:51] VITALS: BP 104/66
[2019-01-01] MEDS ORDERED: FUROSEMIDE 40 MG TAB PO SCH (18:00)
--- NOTE | 2019-01-02 05:09 | Discharge Summary ---
DISCHARGE DIAGNOSES: 1. New onset atrial fibrillation with rapid ventricular response. 2. New onset systolic congestive heart failure, hypertension, and BPH. HISTORY OF PRESENT ILLNESS AND HOSPITAL COURSE: See hospital chart for full details. The patient is a gentleman, who is admitted with dyspnea on exertion, no chest pain, and was found to have atrial fibrillation with RVR. He was brought in and placed on medications and anticoagulation, where an echo did show EF of 20% to 30%, so he was seen by Cardiology, who did a heart catheterization, that showed nonobstructive cardiomyopathy. The patient was placed on appropriate medications. He was diuresed with significant improvement of his dyspnea on exertion. His atrial fibrillation was rate controlled. He is anticoagulated. At the time of discharge, he was transferred to inpatient rehab due to his overall weakness and will follow up with me once he is discharged. Please see hospital chart for full details. MD JOHN Hernandez/KIM /[id number]
[2019-01-02] MEDS ORDERED: AMIODARONE HCL 200 MG TAB PO SCH (09:00)
== END 2019-01-01 17:33 | DRG 286 ==
LOC: ER 11:28 → ERHOLD 13:38 → IMCU 19:35 → MED/SURG2 12-30 22:51
PROVIDERS: ADMIT Internal Medicine; ATTEND Internal Medicine
PROC: 4A023N7 Measurement of Cardiac Sampling and Pressure, Left Heart, Percutaneous Approach (ICD-10-PCS; principal; 2018-12-29)
PROC: B2111ZZ Fluoroscopy of Multiple Coronary Arteries using Low Osmolar Contrast (ICD-10-PCS; 2018-12-29)
PROC: B2151ZZ Fluoroscopy of Left Heart using Low Osmolar Contrast (ICD-10-PCS; 2018-12-29)
PROC: B3101ZZ Fluoroscopy of Thoracic Aorta using Low Osmolar Contrast (ICD-10-PCS; 2018-12-29)
DX: I13.0 Hypertensive heart and chronic kidney disease with heart failure and stage 1 through stage 4 chronic kidney disease, or unspecified chronic kidney disease (principal); I50.21 Acute systolic (congestive) heart failure; I42.9 Cardiomyopathy, unspecified; N40.0 Benign prostatic hyperplasia without lower urinary tract symptoms; I25.119 Atherosclerotic heart disease of native coronary artery with unspecified angina pectoris; I48.91 Unspecified atrial fibrillation; Z86.718 Personal history of other venous thrombosis and embolism; E66.01 Morbid (severe) obesity due to excess calories; I89.0 Lymphedema, not elsewhere classified; N18.3 Chronic kidney disease, stage 3 (moderate); R79.89 Other specified abnormal findings of blood chemistry; Z68.31 Body mass index [BMI] 31.0-31.9, adult
CPT/HCPCS: 36415; 51700; 71045; 80048; 80053; 80061; 83036; 83735; 83880; 84443; 84484; 85025; 85610; 85730; 93005; 93306; 93454; 97139; 99285; C1887; J1160; J1940; J2001; J2250; J2930; J7030; J7040; Q9967